=== PATIENT | male | born 1935 | race Caucasian/White ===

== ENCOUNTER 2018-11-05 16:06 | Emergency (ER) | payer MEDICARE, OTHER ==
[2018-11-05] MEDS ORDERED: Sodium Chloride 0.9% 10 ML Syringe FLUSH PRN (16:28)
[2018-11-05 16:49] LABS: ANION GAP 14.7; CHLORIDE,CL 105 mmol/L (101-111); SODIUM,NA 140 mmol/L (135-145)
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
== END 2018-11-05 18:22 ==
LOC: DL.ED 16:06
DX: I63.9 Cerebral infarction, unspecified (principal); S01.01XA Laceration without foreign body of scalp, initial encounter; W01.198A Fall on same level from slipping, tripping and stumbling with subsequent striking against other object, initial encounter
CPT/HCPCS: 12001; 36415; 70450; 72125; 80053; 82962; 85025; 85610; 93005; 99284; 99285-25